=== PATIENT | male | born 1990 | race Caucasian/White ===

== ENCOUNTER 2024-06-07 09:35 | Emergency (ER) | payer SELFPAY ==
[2024-06-07 09:47] VITALS: BP 131/79; PULSE 83; TEMP 36.8; O2SAT 99; BMI 20.5
--- NOTE | 2024-06-07 09:54 | XRR_ITS ---
PROCEDURE INFORMATION: Exam: XR Lumbosacral Spine Exam date and time: 06/07/2024 10:12 AM Age: 33 years old Clinical indication: Injury or trauma; Fall; Blunt trauma (contusions or hematomas); Injury date: 5 days ago TECHNIQUE: Imaging protocol: Radiologic exam of the lumbosacral spine. Views: 2 or 3 views. COMPARISON: No relevant prior studies available. FINDINGS: Bones/joints: Dextrocurvature of the lumbar spine. Vertebral body and intervertebral disc heights are maintained. No acute fracture or dislocation. Soft tissues: No significant soft tissue pathology. XR/XR lumbar spine 2-3V* [id number] IMPRESSION: No acute pathology. Dextrocurvature of the lumbar spine.
[2024-06-07] MEDS: dexamethasone 10 mg/mL INJ IM (10:37)
[2024-06-07] MEDS: ketorolac 30 mg/mL INJ IVP (10:39)
[2024-06-07] MEDS: orphenadrine 30 mg/mL Inj 2 mL 60 MG IM (10:41)
[2024-06-07 10:44] VITALS: BP 119/79; PULSE 63; O2SAT 98
--- NOTE | 2024-06-07 10:52 | W.ED.BACK ---
HPI - Back Pain/Injury General: Chief Complaint: Back Pain/Injury Stated Complaint: fall Time Seen by Provider: 06/07/24 09:42 History of Present Illness: 33-year-old male presents emergency room complaining of back pain. Patient fell 5 days ago landed on his buttocks. Patient has some mild discomfort radiating to his right leg no difficulty with bowel or bladder function. Associated symptoms: Deny abdominal pain, chills, dysuria, fever(s) or urinary urgency Related Data Previous Rx's Medication Instructions Recorded fluoxetine 20 mg capsule (Prozac) 20 mg PO DAILY #30 caps 05/24/24 fluoxetine 40 mg capsule (Prozac) 40 mg PO DAILY #30 caps 05/24/24 trazodone 50 mg tablet 100 mg (2 x 50 mg) PO .HS PRN 05/24/24 insomnia #60 tabs diclofenac sodium 75 mg 75 mg PO Q12H PRN pain #20 tabs 06/07/24 tablet,delayed release tizanidine 4 mg tablet 4 mg PO Q6H PRN muscle spasticity 06/07/24 #20 tabs Allergies Allergy/AdvReac Type Severity Reaction Status Date / Time NKDA AdvReac Mild NKDA Uncoded 06/07/24 09:51 Review of Systems Const: Denies: fever(s) or chills Card: Denies: chest pain Resp: Denies: dyspnea GI: Denies: abdominal pain : Denies: dysuria, urinary frequency or urinary urgency Musc: Reports: back pain; Denies: neck pain Skin/Breast: Denies: rash PFSH ED PFSH: Medical History Psychiatric care Physical Exam Const: COMMON NORMALS: no acute distress GENERAL APPEARANCE: cooperative and comfortable ORIENTATION/CONSCIOUSNESS: Yes awake, Yes oriented to person, Yes oriented to place and Yes oriented to time HENMT: COMMON NORMALS: normocephalic, atraumatic and hearing grossly normal bilaterally HEAD & SCALP: normocephalic and atraumatic Resp: COMMON NORMALS: normal respiratory effort, No retractions, No use of accessory muscles and clear to auscultation bilaterally AUSCULTATION: clear to auscultation bilaterally Cardio: COMMON NORMALS: regular rate, regular rhythm and No murmurs present (Cardio) RATE: regular rate RHYTHM: regular rhythm GI: COMMON NORMALS: Soft to palpation and No hepatosplenomegaly present AUSCULTATION: Yes normoactive bowel sounds PALPATION: Yes Soft to palpation, No Tenderness to palpation present (GI), No Guarding due to palpation present (GI) and Yes No hepatosplenomegaly present Extremity: COMMON NORMALS: normal to inspection, capillary refill normal, no clubbing, cyanosis or edema, no calf tenderness and no pedal edema Neuro: SENSORIUM/ORIENTATION: Yes oriented to person, Yes oriented to place and Yes oriented to time OTHER: Straight leg is negative bilaterally deep tendon reflexes +2/4 patellar tendon dorsum plantarflexion and 5 out of 5 sensation lower extremities normal Skin: COMMON NORMALS: no rashes or lesions noted GENERAL SKIN EXAM: no rashes or lesions noted Course Vital Signs: Vital signs: Vital Signs Temperature 98.3 F 06/07/24 09:47 Pulse Rate 78 06/07/24 11:04 Blood Pressure 122/74 06/07/24 11:04 Pulse Oximetry 96 06/07/24 11:04 Oxygen Delivery Me thod Room Air 06/07/24 10:44 MDM - Back Pain/Injury Medical Decision Making No sign of neurologic impingement at this time will discharge patient home on anti-inflammatories and muscle relaxer follow-up with primary care if not improving. X-rays of the lumbar spine are normal Labs Radiology Impressions Lumbar Spine X-Ray 06/07/24 09:54 IMPRESSION: No acute pathology. Dextrocurvature of the lumbar spine. All radiology interpretation(s) finalized by discharge Discharge Plan Discharge Patient Disposition: Home Clinical Impression: Lumbar radiculopathy Condition: Stable Prescriptions: New tizanidine 4 mg tablet 4 mg PO Q6H PRN (Reason: muscle spasticity) Qty: 20 0RF Rx Instructions: do not exceed 3 doses per 24 hrs diclofenac sodium 75 mg tablet,delayed release (DR/EC) 75 mg PO Q12H PRN (Reason: pain) Qty: 20 0RF No Action trazodone 50 mg tablet 100 mg PO .HS PRN (Reason: insomnia) Qty: 60 2RF fluoxetine [Prozac] 20 mg capsule 20 mg PO DAILY Qty: 30 0RF fluoxetine [Prozac] 40 mg capsule 40 mg PO DAILY Qty: 30 2RF Rx Instructions: Start after 1 month on 20 mg. Discharge Orders: Discharge ED (Routine); Ordered 06/07/24 Ordered By: Aureliano Galan Discharge Diet: Usual diet Discharge Activity: Increase activity as tolerated Patient Instructions: Lumbar Radiculopathy (ED), Lower Back Exercises (ED), Opioid Safety, Pain Management Activity Restrictions/Additional Instructions: Thank you for choosing [facility] for your healthcare needs today. It is very important that you follow up as instructed or that you return to the Emergency Department should you have concerns or if your condition changes or worsens in any way. You were seen in the emergency room with complaint of back pain after fall your x-rays did not show any acute fracture. Recommend you take diclofenac and tizanidine as needed for your low back pain. If not improving follow-up with primary care doctor they can reevaluate and recommend further evaluation if felt appropriate Coding Level of Care Code ED [employer]loader for Tamir Jones
[2024-06-07 11:04] VITALS: BP 122/74; PULSE 78; O2SAT 96
== END 2024-06-07 11:06 | disposition home or self-care (01) ==
PROVIDERS: Emergency Provider Family Medicine
DX: M54.16 Radiculopathy, lumbar region (principal)
CPT/HCPCS: 72100; 96372; 96374; 99284; J1100; J1885; J2360